=== PATIENT | male | born 2000 | race Caucasian/White ===

== ENCOUNTER 2020-10-22 17:16 | Emergency (ER) | payer OTHER ==
[~2020-10-22] VITALS: Ht 167.6 cm; Wt 85.6 kg
[2020-10-22] MEDS ORDERED: LIDOCAINE 1% MDV 20ML VIAL SC ONE (19:10)
--- NOTE | 2020-10-22 19:20 | REP ---
INDICATION: laceration to index finger COMPARISON: None. TECHNIQUE: Four views left 2nd digit. FINDINGS: There is no evidence of acute fracture, dislocation, or intrinsic bone disease.There is no radiopaque foreign body in the soft tissues. IMPRESSION: No fracture or dislocation. There is no radiopaque foreign body in the soft tissues. <Electronically signed by Kaden Romeo > 10/22/20 [id number]
[2020-10-22 19:56] VITALS: BP 123/78
== END 2020-10-22 20:00 | disposition home or self-care (01) ==
LOC: M ED 17:16
DX: S61.211A Laceration without foreign body of left index finger without damage to nail, initial encounter (principal); W26.0XXA Contact with knife, initial encounter; Y92.018 Other place in single-family (private) house as the place of occurrence of the external cause

== ENCOUNTER 2021-12-03 20:12 | Inpatient (IN) | payer OTHER ==
[~2021-12-03] VITALS: Ht 170.2 cm; Wt 68.1 kg
[2021-12-03 20:58] LABS: HEMATOCRIT 46.3 % (42.0-52.0); HEMOGLOBIN 16.6 g/dl (13.5-17.5); MEAN CORPUSCULAR HEMOGLOBIN 30.2 pg (27.0-33.0); MEAN CORPUSCULAR HGB CONC 35.9 g/dl (32.0-36.5); MEAN CORPUSCULAR VOLUME 84.2 fl (80.0-96.0); PLATELET COUNT, AUTOMATED 244 10^3/uL (150-450); WHITE BLOOD COUNT 9.9 10^3/uL (4.0-10.0)
[2021-12-03 21:29] LABS: AMPHETAMINES LEVEL URINE NEGATIVE (NEGATIVE); BARBITURATES URINE NEGATIVE (NEGATIVE); BENZODIAZEPINES URINE NEGATIVE (NEGATIVE); CANNABINOIDS URINE POSITIVE (NEGATIVE); COCAINE METABOLITE URINE POSITIVE (NEGATIVE); METHADONE URINE NEGATIVE (NEGATIVE); OPIATES URINE NEGATIVE (NEGATIVE); PHENCYCLIDINE URINE NEGATIVE (NEGATIVE)
[2021-12-03 21:42] LABS: ACETAMINOPHEN LEVEL < 2.0 UG/ML (10.0-30.0); ALBUMIN 4.4 GM/DL (3.2-5.2); ALT/SGPT 80 U/L (12-78); BILIRUBIN,DIRECT 0.1 MG/DL (0.0-0.2); BILIRUBIN,TOTAL 0.5 MG/DL (0.2-1.0); BLOOD UREA NITROGEN 13 MG/DL (7-18); CALCIUM LEVEL 9.6 MG/DL (8.5-10.1); CARBON DIOXIDE LEVEL 26 MEQ/L (21-32); CHLORIDE LEVEL 109 MEQ/L (98-107); CREATININE FOR GFR 1.11 MG/DL (0.70-1.30); ETHYL ALCOHOL (ETHANOL) < 0.003 % (0.000-0.010); GLOMERULAR FILTRATION RATE > 60.0 (>60); GLUCOSE, FASTING 98 MG/DL (70-100); POTASSIUM SERUM 4.1 MEQ/L (3.5-5.1); SALICYLATE LEVEL < 1.7 MG/DL (5.0-30.0); SODIUM LEVEL 142 MEQ/L (136-145); TOTAL PROTEIN 7.7 GM/DL (6.4-8.2)
[2021-12-03 23:50] LABS: RSV AMPLIFICATION NEGATIVE (NEGATIVE)
[2021-12-04] MEDS ORDERED: HYDR-643 PO (06:35)
[2021-12-04] MEDS ORDERED: ASPI1TAB8 PO (06:35)
[2021-12-04] MEDS ORDERED: VITA100093 PO (06:35)
[2021-12-04] MEDS ORDERED: HOME MED LIST COMPLETE! XX SCH (06:35)
[2021-12-04] MEDS ORDERED: ASPIRIN 81MG ENTERIC TABLET PO SCH (09:00)
[2021-12-04] MEDS ORDERED: LORazepam 2 MG TAB PO STA (13:59)
[2021-12-04] MEDS ORDERED: hydrOXYzine 10 MG TAB PO SCH (21:00)
[2021-12-04 21:19] LABS: APPEARANCE, URINE HAZY (CLEAR); BACTERIA, URINE AUTO NEGATIVE (NEGATIVE); BILIRUBIN, URINE AUTO NEGATIVE (NEGATIVE); BLOOD, URINE BLOOD NEGATIVE (NEGATIVE); COLOR, URINE YELLOW (YELLOW); GLUCOSE, URINE (UA) AUTO NEGATIVE (NEGATIVE); KETONE, URINE AUTO 2+ mg/dL (NEGATIVE); LEUKOCYTE ESTERASE, URINE AUTO NEGATIVE (NEGATIVE); MUCUS, URINE SMALL (NEGATIVE); NITRITE, URINE AUTO NEGATIVE (NEGATIVE); PROTEIN, URINE AUTO 1+ mg/dL (NEGATIVE); RBC, URINE AUTO 1 /HPF (0-3); SPECIFIC GRAVITY URINE AUTO 1.032 (1.002-1.035); SQUAMOUS EPITHELIAL CELL UR AU 0 /HPF (0-6); WBC, URINE AUTO 0 /HPF (0-3)
[2021-12-04] MEDS ORDERED: traZODone 50 MG TAB PO PRN (23:15)
[2021-12-04] MEDS ORDERED: MAALOX 30 ML SUSP *UDC PO PRN (23:15)
[2021-12-04] MEDS ORDERED: ACETAMINOPHEN TAB 650MG DOSE (2X325MG) PO PRN (23:15)
[2021-12-04] MEDS ORDERED: LORazepam 1 MG TAB PO PRN (23:15)
[2021-12-04] MEDS ORDERED: MOM 30ML SUSPENSION UDC PO PRN (23:15)
[2021-12-05 00:27] VITALS: BP 150/75
[2021-12-05] MEDS: ASPIRIN 81MG ENTERIC TABLET PO SCH (09:16)
[2021-12-05] MEDS: VITAMIN D 1,000 INTERNATIONAL UNITS TABLET PO SCH (09:16)
[2021-12-05 13:29] LABS: APPEARANCE, URINE CLEAR (CLEAR); BACTERIA, URINE AUTO NEGATIVE (NEGATIVE); BILIRUBIN, URINE AUTO NEGATIVE (NEGATIVE); BLOOD, URINE BLOOD NEGATIVE (NEGATIVE); COLOR, URINE STRAW (YELLOW); GLUCOSE, URINE (UA) AUTO NEGATIVE (NEGATIVE); KETONE, URINE AUTO NEGATIVE (NEGATIVE); LEUKOCYTE ESTERASE, URINE AUTO NEGATIVE (NEGATIVE); NITRITE, URINE AUTO NEGATIVE (NEGATIVE); PROTEIN, URINE AUTO NEGATIVE (NEGATIVE); RBC, URINE AUTO 0 /HPF (0-3); SPECIFIC GRAVITY URINE AUTO 1.005 (1.002-1.035); SQUAMOUS EPITHELIAL CELL UR AU 0 /HPF (0-6); UROBILINOGEN, URINE AUTO 0.2 mg/dL (0.0-2.0); WBC, URINE AUTO 0 /HPF (0-3)
[2021-12-05 13:45] LABS: C REACTIVE PROTEIN QUANTITATIV < 0.30 MG/DL (0.00-0.30); COMPLEMENT C3 122 MG/DL (90-180); COMPLEMENT C4 27 MG/DL (10-40); TOTAL PROTEIN 8.4 GM/DL (6.4-8.2)
[2021-12-05 13:52] LABS: CREATININE,RANDOM URINE 67.9 MG/DL
[2021-12-05 17:30] VITALS: BP 122/73
[2021-12-05] MEDS ORDERED: MIRTAZAPINE 15 MG TAB PO SCH (21:00)
[2021-12-06 07:04] VITALS: BP 134/79
[2021-12-06] MEDS ORDERED: MIRT-10 PO (07:51)
[2021-12-06] MEDS ORDERED: TRAZ-252 PO (07:51)
[2021-12-06] MEDS: VITAMIN D 1,000 INTERNATIONAL UNITS TABLET PO SCH (08:40)
[2021-12-06] MEDS: ASPIRIN 81MG ENTERIC TABLET PO SCH (08:40)
[2021-12-06 08:50] LABS: CHOLESTEROL RISK RATIO 3.75 (<5)
[2021-12-09 15:11] LABS: ANA (HEP2) Positive (.); ANTI DS-DNA AB Positive (Negative); RNP ANTIBODY 0.2 AI (0.0-0.9); SMITHS ANTIBODY < 0.2 AI (0.0-0.9); SSA SJOGRENS A <0.2 AI (0.0-0.9); SSB SJOGRENS B 0.6 AI (0.0-0.9)
[2021-12-11 14:21] LABS: ALBUMIN 5.54 GM/DL (3.29-5.55); ALBUMIN % 65.9 % (55.8-66.1); ALPHA-1-GLOBULIN % 3.4 % (2.9-4.9); ALPHA-1-GLOBULINS 0.29 GM/DL (0.17-0.41); ALPHA-2-GLOBULINS 0.67 GM/DL (0.42-0.99); BETA-1-GLOBULINS % 4.8 % (4.7-7.2); BETA-2-GLOBULINS 0.35 GM/DL (0.19-0.55); BETA-2-GLOBULINS % 4.2 % (3.2-6.5); GAMMA GLOBULIN % 13.7 % (11.1-18.8); GAMMA GLOBULINS 1.15 GM/DL (0.65-1.58)
== END 2021-12-06 10:32 | disposition home or self-care (01) | DRG 880 ==
LOC: M ED 20:12 → M ED INP 12-04 23:12 → M PSY 12-05 00:10
PROVIDERS: ADMIT Student in an Organized Health Care Education/Training Program; ATTEND Student in an Organized Health Care Education/Training Program
DX: F41.8 Other specified anxiety disorders (principal); Z63.0 Problems in relationship with spouse or partner; F43.23 Adjustment disorder with mixed anxiety and depressed mood; F12.10 Cannabis abuse, uncomplicated; F14.10 Cocaine abuse, uncomplicated